=== PATIENT | male | born 1990 | race Caucasian/White ===

== ENCOUNTER → 2016-07-25 | Outpatient (CLI) | payer OTHER, BC ==
--- NOTE | 2016-07-26 08:25 | USB ---
Reason for exam: clinical finding. History: Family history of breast cancer in maternal grandmother. Indicated problem(s): pain in both breasts. Physical Findings: Nurse Summary: pain and swelling x 2 years, no discharge (nurse jorge). US Breast BILAT Right breast ultrasound including all four quadrants, the retroareolar region and axilla demonstrates dense tissue behind nipple/areola. Left breast ultrasound including all four quadrants, the retroareolar region and axilla demonstrates dense tissue behind nipple/areola. These results were verbally communicated with the patient and result sheet given to the patient on 08/05/16. ASSESSMENT: Benign, BI-RAD 2 RECOMMENDATION: Clinical management of both breasts. Manage patient on a clinical basis.
== END | disposition home or self-care (01) ==
LOC: RADUSWWP 14:57
PROVIDERS: ATTEND Internal Medicine
DX: N62 Hypertrophy of breast (principal)

== ENCOUNTER → 2016-08-14 | Outpatient (CLI) | payer OTHER, BC ==
[2016-08-14 11:39] LABS: Bilirubin, Delta 0.3 mg/dL (0.0-0.2); Total Bilirubin 0.8 mg/dL (0.2-1.3); Total Protein 7.6 g/dL (6.3-8.2)
[2016-08-14 11:56] LABS: Follicle Stimulating Hormone 3.4 mIU/mL (1.6-9.7); Prolactin 9.5 ng/mL (3.7-17.9)
== END | disposition home or self-care (01) ==
LOC: LABWHC1 10:47
PROVIDERS: ATTEND Surgery
DX: N63 Unspecified lump in breast (principal)
CPT/HCPCS: 36415; 80076; 82626; 82670; 83001; 83002; 84146; 84403; 84443; 84702

== ENCOUNTER → 2017-10-24 | Outpatient (CLI) | payer BC ==
[2017-10-24 10:01] LABS: Basophils # (A) 0.1 k/uL (0-0.2); Basophils % (A) 1 %; Eosinophils # (A) 0.1 k/uL (0-0.7); Eosinophils % (A) 2 %; HCT 47.4 % (39.0-53.0); HGB 15.7 gm/dL (13.0-17.5); Lymphocytes # (A) 2.1 k/uL (1.0-4.8); Lymphocytes % (A) 40 %; MCH 27.9 pg (25.0-35.0); MCHC 33.1 g/dL (31.0-37.0); MCV 84.4 fL (80.0-100.0); Mean Platelet Volume 7.1; Monocytes # (A) 0.4 k/uL (0-1.0); Monocytes % (A) 7 %; Neutrophils # (A) 2.6 k/uL (1.3-7.7); Neutrophils % (A) 49 %; Platelet Count 228 k/uL (150-450); RBC 5.61 m/uL (4.30-5.90); WBC 5.2 k/uL (3.8-10.6)
[2017-10-24 10:14] LABS: ALT 26 U/L (21-72); AST 22 U/L (17-59); Albumin 4.5 g/dL (3.5-5.0); Alkaline Phosphatase 42 U/L (38-126); Anion Gap 13 mmol/L; Blood Urea Nitrogen 18 mg/dL (9-20); Calcium 9.6 mg/dL (8.4-10.2); Carbon Dioxide 29 mmol/L (22-30); Chloride 101 mmol/L (98-107); Cholesterol 207 mg/dL (<200); Glucose 90 mg/dL (74-99); HDL Cholesterol 54 mg/dL (40-60); LDL Cholesterol,Calculated 132 mg/dL (0-99); Potassium 4.2 mmol/L (3.5-5.1); Sodium 143 mmol/L (137-145); Total Bilirubin 0.7 mg/dL (0.2-1.3); Triglycerides 107 mg/dL (<150)
[2017-10-24 10:31] LABS: T4, Free (Free Thyroxine) 0.95 ng/dL (0.78-2.19)
== END | disposition home or self-care (01) ==
LOC: LABWHC1 09:10
PROVIDERS: ATTEND Internal Medicine
DX: Z00.00 Encounter for general adult medical examination without abnormal findings (principal)
CPT/HCPCS: 36415; 80053; 80061; 84439; 84443; 85025

== ENCOUNTER → 2022-10-05 | Outpatient (CLI) | payer BC | END | disposition home or self-care (01) | LOC: LABWHC1 08:14 | PROVIDERS: ATTEND Urology | DX: Z53.9 Procedure and treatment not carried out, unspecified reason (principal) ==

== ENCOUNTER → 2022-10-08 | Outpatient (CLI) | payer BC ==
[2022-10-08 12:00] LABS: Basophils # (A) 0.07 X 10*3/uL (0.00-0.10); Basophils % (A) 1.1 %; Eosinophils # (A) 0.27 X 10*3/uL (0.04-0.35); Eosinophils % (A) 4.1 %; HCT 47.4 % (39.6-50.0); HGB 15.6 g/dL (13.0-17.0); Immature Grans, Automated 0.5 %; Lymphocytes # (A) 2.67 X 10*3/uL (0.90-5.00); Lymphocytes % (A) 40.5 %; MCH 28.7 pg (27.0-32.0); MCHC 32.9 g/dL (32.0-37.0); MCV 87.1 fL (80.0-97.0); Mean Platelet Volume 10.6 fL (9.5-12.2); Monocytes # (A) 0.59 X 10*3/uL (0.20-1.00); NRBC Per 100 WBC 0 /100 WBCS (0.0-0.0); Neutrophils # (A) 2.96 X 10*3/uL (1.80-7.70); Neutrophils % (A) 44.8 %; Platelet Count 249 X 10*3/uL (140-440); RBC 5.44 X 10*6/uL (4.40-5.60); RDW 12.9 % (11.5-14.5); WBC 6.59 X 10*3/uL (4.50-10.00)
[2022-10-08 20:56] LABS: Follicle Stimulating Hormone 3.8 mIU/mL; Luteinizing Hormone 4.7 mIU/mL
== END | disposition home or self-care (01) ==
LOC: LABWHC1 07:09
PROVIDERS: ATTEND Urology
DX: E29.1 Testicular hypofunction (principal)
CPT/HCPCS: 36415; 82672; 83001; 83002; 84403; 85025